=== PATIENT | male | born 1950 | race Caucasian/White ===

== ENCOUNTER → 2016-12-07 | Outpatient (CLI) | payer MEDICARE, OTHER ==
--- NOTE | 2016-12-07 12:22 | RADIOLOGY REPORT (SQ) ---
EXAM DESCRIPTION: MRI HEAD COMBO COMPLETED DATE/TIME: 12/07/2016 11:39 am REASON FOR STUDY: DIZZINESS/HEADACHE R51 HEADACHE R42 DIZZINESS AND GIDDINESS COMPARISON: None. TECHNIQUE: Multiplanar imaging includes noncontrasted T1, T2, FLAIR, diffusion with ADC map and post gadolinium contrast T1 sequences. Images stored on PACS. CONTRAST TYPE AND DOSE: 10 mL Multihance. RENAL FUNCTION: GFR > 60. LIMITATIONS: None. FINDINGS: ANATOMY: No congenital brain anomalies. Normal vascular flow voids. Pituitary fossa normal . CSF SPACES: Normal in size and contour. No hemorrhage. CEREBRUM: Sulci and gyri normal in size and contour. Normal white matter signal on FLAIR imaging. No evidence of hemorrhage, mass, or extraaxial fluid collection. No abnormal enhancement post contrast. POSTERIOR FOSSA: No signal alteration. No hemorrhage. No edema, masses, or mass effect. Internal ignacia tory canals, cerebellopontine angles, mastoids normal. No enhancing lesions. No abnormal enhancement post contrast. DIFFUSION IMAGING: Negative for acute or subacute infarction. ORBITS: No masses. Right globe post cataract surgery. Left globe unremarkable PARANASAL SINUSES: Opacified left maxillary sinus with fluid, sinusitis versus mucus or serous retent ion cyst OTHER: No other significant finding. IMPRESSION: LEFT MAXILLARY SINUS IS OPACIFIED WITH FLUID, SINUSITIS VERSUS MUCUS OR SEROUS RETENTION CYST. OTHERWISE, UNREMARKABLE MRI OF THE BRAIN WITHOUT AND WITH INTRAVENOUS GADOLINIUM CONTRAST. EVIDENCE OF ACUTE STROKE: NO. TECHNICAL DOCUMENTATION: JOB ID: [id number] [employer]- All Rights Reserved
--- NOTE | 2016-12-07 12:36 | RADIOLOGY REPORT (SQ) ---
EXAM DESCRIPTION: CAROTID DOPPLER COMPLETED DATE/TIME: 12/07/2016 12:27 pm REASON FOR STUDY: DIZZINESS R51 HEADACHE R42 DIZZINESS AND GIDDINESS COMPARISON: MRI brain 12/07/2016 TECHNIQUE: Grayscale ultrasound, Doppler velocity and spectra, and color Doppler images acquired of the extra-cranial carotid and vertebral arteries. Images stored on PACS. LIMITATIONS: None. FINDINGS: RIGHT CAROTID CCA Velocities: Within normal limits. ICA Velocities Peak systolic 0.87 m/s. End diastolic 0.11 m/s. Proximal ICA/CCA peak systolic ratio 0.8. Spectra normal. No significant plaque. LEFT CAROTID CCA Velocities: Within normal limits. ICA Velocities Peak systolic 0.94 m/s. End diastolic 0.19 m/s. Proximal ICA/CCA peak systolic ratio 0.8. Spectra normal. No significant plaque. VERTEBRAL ARTERIES: Antegrade flow. Normal waveforms. SUBCLAVIAN ARTERIES: Not examined OTHER: No other significant finding. IMPRESSION: NO HEMODYNAMICALLY SIGNIFICANT STENOSIS. COMMENT: Quality ID #195: Velocity criteria are extrapolated from the diameter data as defined by t he Society of Radiologists in Ultrasound Consensus Conference. Radiology 2003: 229; 340-346. TECHNICAL DOCUMENTATION: JOB ID: [id number] [employer]- All Rights Reserved
== END ==
LOC: RAD 10:45
PROVIDERS: ATTEND Physician Assistant
DX: R51 Headache (principal); R42 Dizziness and giddiness
CPT/HCPCS: 82565; 93880; 70553; A9577

== ENCOUNTER 2019-08-31 11:27 | Emergency (ER) | payer MEDICARE, OTHER ==
--- NOTE | 2019-08-31 12:10 | ER Document Report ---
ED Medical Screen (RME) - General Chief Complaint: General Weakness Stated Complaint: WEAKNESS Time Seen by Provider: 08/31/19 12:02 Mode of Arrival: Ambulatory Information source: Patient Notes: 69-year-old male presented to ED for complaint of lightheadedness which has increased over the last 2 days. He states he did have a carotid scan echo and is seen his card folder last week. He does have a radiation monitor on the supposed to mail and when the week is over. He states he has been feeling clammy weeks hand tingling and lightheaded which is increased over the last 2 days. He states he cannot get a hold to his card folder because he is on vacation at this time. He does have a history of high blood pressure cholesterol diabetes type 2 inguinal hernia to the left repaired a colon resection with 12 inches of colon removed for colon polyp and a colonoscopy. He does not smoke but he is a former smoker does not drink or use any illicit drugs. Lives with his and he is retired. Lungs are clear to auscultation respirations are regular nonlabored at this time. I have greeted and performed a rapid initial assessment of this patient. A comprehensive ED assessment and evaluation of the patient, analysis of test results and completion of medical decision making process will be conducted by an additional ED providers. TRAVEL OUTSIDE OF THE [place] IN LAST 30 DAYS: No - Related Data Allergies/Adverse Reactions: No Known Allergies Allergy (Unverified 09/08/15 13:04) Past Medical History - Past Medical History Cardiac Medical History: Reports: Hx Hypertension Denies: Hx Heart Attack Pulmonary Medical History: Denies: Hx Asthma Neurological Medical History: Denies: Hx Cerebrovascular Accident, Hx Seizures GI Medical History: Denies: Hx Hepatitis, Hx Hiatal Hernia, Hx Ulcer Infectious Medical History: Denies: Hx Hepatitis Past Surgical History: Denies: Hx Open Heart Surgery, Hx Pacemaker Physical Exam - Vital signs Vitals: Temp Pulse Resp BP Pulse Ox 98.9 F 98 20 137/53 H 99 08/31/19 11:31 08/31/19 11:31 08/31/19 11:08/31/19 11:08/31/19 11:31 Course - Vital Signs Vital signs: Temp Pulse Resp BP Pulse Ox 98.9 F 98 20 137/53 H 99 08/31/19 11:08/31/19 11:31 08/31/19 11:31 08/31/19 11:31 08/31/19 11:31
[2019-08-31 12:38] LABS: ABSOLUTE EOSINOPHILS # (AUTO) 0.2 10^3/uL (0.0-0.6); ABSOLUTE LYMPHOCYTES (AUTO) 1.1 10^3/uL (0.5-4.7); ABSOLUTE MONOCYTES (AUTO) 0.6 10^3/uL (0.1-1.4); ABSOLUTE NEUT (AUTO) 7.1 10^3/uL (1.7-8.2); BASOPHILS % (AUTO) 0.5 % (0-2); EOSINOPHILS % (AUTO) 2.6 % (0-6); HEMATOCRIT 45.3 % (37.9-51.0); LYMPHOCYTES % (AUTO) 11.9 % (13-45); MEAN CORPUSCULAR HEMOGLOBIN 29.9 pg (27.0-33.4); MEAN CORPUSCULAR HGB CONC 35.3 g/dL (32.0-36.0); MEAN CORPUSCULAR VOLUME 85 fl (80-97); MONOCYTES % (AUTO) 6.5 % (3-13); PLATELET COUNT 243 10^3/uL (150-450); RED BLOOD COUNT 5.34 10^6/uL (4.35-5.55); RED CELL DISTRIBUTION WIDTH 16.4 % (11.5-14.0); SEGMENTED NEUTROPHILS % (AUTO) 78.5 % (42-78); TOTAL CELLS COUNTED % (AUTO) 100 %
[2019-08-31 12:57] LABS: APPEARANCE,URINE SLIGHTLY-CLOUDY; BILIRUBIN,URINE NEGATIVE (NEGATIVE); GLUCOSE, URINE >=500 mg/dL (NEGATIVE); KETONES,URINE TRACE mg/dL (NEGATIVE); LEUKOCYTE ESTERASE,URINE TRACE (NEGATIVE); NITRITE,URINE NEGATIVE (NEGATIVE); PROTEIN,URINE NEGATIVE (NEGATIVE); URINE SPECIFIC GRAVITY 1.021
[2019-08-31 12:58] LABS: ALBUMIN 4.6 g/dL (3.5-5.0); ALKALINE PHOSPHATASE 70 U/L (38-126); ANION GAP 9 (5-19); ASPARTATE AMINO TRANSFERASE 30 U/L (17-59); BILIRUBIN,TOTAL 0.7 mg/dL (0.2-1.3); BLOOD UREA NITROGEN 20 mg/dL (7-20); CALCIUM 10.7 mg/dL (8.4-10.2); CARBON DIOXIDE 27 mmol/L (22-30); CHLORIDE 99 mmol/L (98-107); COLOR,URINE YELLOW; CREATINE KINASE 68 U/L (55-170); GLUCOSE 277 mg/dL (75-110); POTASSIUM 4.8 mmol/L (3.6-5.0); TOTAL PROTEIN 7.5 g/dL (6.3-8.2)
--- NOTE | 2019-08-31 12:59 | RADIOLOGY REPORT (SQ) ---
EXAM DESCRIPTION: CHEST 2 VIEWS IMAGES COMPLETED DATE/TIME: 08/31/2019 12:45 pm REASON FOR STUDY: Clammy lightheaded tingling fingers weakness COMPARISON: None. EXAM PARAMETERS: NUMBER OF VIEWS: two views TECHNIQUE: Digital Frontal and Lateral radiographic views of the chest acquired. RADIATION DOSE: NA LIMITATIONS: none FINDINGS: LUNGS AND PLEURA: Possible 8 mm nodule in the right base. This could represent nipple sha rajendra. MEDIASTINUM AND HILAR STRUCTURES: No masses or contour abnormalities. HEART AND VASCULAR STRUCTURES: Heart normal size. No evidence for failure. BONES: No acute findings. HARDWARE: Electronic device on the left side of the chest. OTHER: No other significant finding. IMPRESSION: Cannot exclude a right pulmonary nodule. Consider repeat PA chest film with nipple ángel ers. TECHNICAL DOCUMENTATION: JOB ID: [id number] 2010 [employer]- All Rights Reserved Reading location - IP/workstation name: [email or web address]
--- NOTE | 2019-08-31 13:11 | EKG REPORT ---
SEVERITY:- ABNORMAL ECG - SINUS RHYTHM LEFT ANTERIOR FASCICULAR BLOCK CONSIDER ANTEROSEPTAL INFARCT : Confirmed by: David Payton MD 31-Aug-2019 13:10:10
--- NOTE | 2019-08-31 15:42 | RADIOLOGY REPORT (SQ) ---
EXAM DESCRIPTION: CHEST SINGLE VIEW IMAGES COMPLETED DATE/TIME: 08/31/2019 3:19 pm REASON FOR STUDY: eval possible pulmonary nodule COMPARISON: 08/31/2019 EXAM PARAMETERS: NUMBER OF VIEWS: One view. TECHNIQUE: Single frontal radiographic view of the chest acquired. Nipple markers in place. RADIATION DOSE: NA LIMITATIONS: None. FINDINGS: LUNGS AND PLEURA: No opacities, masses or pneumothorax. No pleural effusion. MEDIASTINUM AND HILAR STRUCTURES: No masses. Contour normal. HEART AND VASCULAR STRUCTURES: Heart normal in size. Normal vasculature. BONES: No acute findings. HARDWARE: Loop recorder overlies left chest. OTHER: No other significant finding. IMPRESSION: No evidence of acute cardiopulmonary process. No discrete pulmonary nodule identified. TECHNICAL DOCUMENTATION: JOB ID: [id number] 2010 [employer]- All Rights Reserved Reading location - IP/workstation name: [email or web address]
--- NOTE | 2019-08-31 17:05 | ER Document Report ---
ED Dizziness/Weakness - General Chief Complaint: General Weakness Stated Complaint: WEAKNESS Time Seen by Provider: 08/31/19 12:02 Primary Care Provider: GEORGIANA GIL MD [Primary Care Provider] - Follow up as needed Mode of Arrival: Ambulatory Information source: Patient Notes: This is a 69-year-old male patient presenting to the emergency department with c oncerns for lightheadedness, clammy, and bilateral extremity upper and lower tingling and generalized weakness. He reports her symptoms started this morning at 7 AM. He denies any chest pain or shortness of breath. He does have a history of hypertension, hyperlipidemia and diabetes. He is a former smoker that quit 30 years ago[address] He sees Dr. Andrade in [place], he had an echocardiogram done on and he currently has a Holter monitor in place. He states the reason for the Holter monitor and recent echo is due to the symptoms that he is presenting with today. TRAVEL OUTSIDE OF THE [place] IN LAST 30 DAYS: No - Related Data Allergies/Adverse Reactions: No Known Allergies Allergy (Unverified 09/08/15 13:04) Past Medical History - General Information source: Patient - Social History Smoking Status: Former Smoker Family History: Reviewed & Not Pertinent Patient has homicidal ideation: No - Past Medical History Cardiac Medical History: Reports: Hx Hypertension Denies: Hx Heart Attack Pulmonary Medical History: Denies: Hx Asthma Neurological Medical History: Denies: Hx Cerebrovascular Accident, Hx Seizures GI Medical History: Denies: Hx Hepatitis, Hx Hiatal Hernia, Hx Ulcer Infectious Medical History: Denies: Hx Hepatitis Past Surgical History: Denies: Hx Open Heart Surgery, Hx Pacemaker Review of Systems - Review of Systems Constitutional: Malaise, Weakness - Generalized EENT: No symptoms reported Cardiovascular: denies: Chest pain, Palpitations, Heart racing Respiratory: No symptoms reported Physical Exam - Vital signs Vitals: Temp Pulse Resp BP Pulse Ox 98.9 F 98 20 137/53 H 99 08/31/19 11:31 08/31/19 11:31 08/31/19 11:31 08/31/19 11:08/31/19 11:31 - Notes Notes: PHYSICAL EXAMINATION: GENERAL: Well-appearing, well-nourished and in no acute distress. HEAD: Atraumatic, normocephalic. EYES: Pupils equal round and reactive to light, extraocular movements intact, sclera anicteric, conjunctiva are normal. ENT: Nares patent, oropharynx clear without exudates. Moist mucous membranes. NECK: Normal range of motion, supple without lymphadenopathy LUNGS: Breath sounds clear to auscultation bilaterally and equal. No wheezes rales or rhonchi. HEART: Regular rate and rhythm without murmurs ABDOMEN: Soft, nontender, nondistended abdomen. No guarding, no rebound. No masses appreciated. Musculoskeletal: Normal range of motion, no pitting or edema. No cyanosis. NEUROLOGICAL: Cranial nerves grossly intact. Normal speech, normal gait. Normal sensory, motor exams PSYCH: Normal mood, normal affect. SKIN: Warm, Dry, normal turgor, no rashes or lesions noted. Course - Re-evaluation Re-evalutation: Patient appears well, nontoxic his vital signs have been within normal limits. EKG was reviewed by me shows a sinus rhythm, rate of 91, QTc 424, normal axis, no ST segment elevations or depressions to suggest ischemia. There is no previous EKG on file to compare to. His work-up today has been reassuring. He has had 2- troponins and a normal chest x-ray. Other laboratory investigations were reassuring. I did discuss this patient with attending physician, Dr. Guzman. 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 He was given strict ED return precautions and he was invited to return to the emergency department at anytime for reevaluation. Patient and his are in agreement with this plan, patient reports he feels much better now. - Vital Signs Vital signs: Temp Pulse Resp BP Pulse Ox 98.7 F 83 18 129/76 H 98 08/31/19 17:37 08/31/19 17:37 08/31/19 17:37 08/31/19 17:37 08/31/19 17:37 - Laboratory Result Diagrams: 08/31/19 12:15 08/31/19 12:15 Laboratory results interpreted by me: 08/31/19 08/31/19 08/31/19 12:15 12:15 12:15 RDW 16.4 H Lymph % (Auto) 11.9 L Seg Neutrophils % 78.5 H Sodium 134.5 L Glucose 277 H Calcium 10.7 H Urine Glucose (UA) >=500 H Urine Ketones TRACE H Urine Urobilinogen 2.0 H Ur Leukocyte Esterase TRACE H Urine Ascorbic Acid 40 H Discharge - Discharge Clinical Impression: Generalized weakness Condition: Stable Disposition: HOME, SELF-CARE Additional Instructions: As discussed please follow-up with your field crop harvest worker, call them tomorrow morning to schedule an appointment. Let them know that we did a cardiac work-up today and you had 2 negative troponins. Please return to the emergency department with any new or worsening symptoms, we are always happy to reevaluate you. Referrals: GEORGIANA GIL MD [Primary Care Provider] - Follow up as needed
[2019-08-31 17:38] VITALS: BP 129/76
== END 2019-08-31 17:36 | disposition home or self-care (01) ==
LOC: ER 11:27
DX: R53.1 Weakness (principal); I10 Essential (primary) hypertension
CPT/HCPCS: 36415; 71045; 71046; 80053; 81001; 82550; 83735; 84443; 84484; 85025; 93005; 93010; 99285

== ENCOUNTER 2019-10-14 13:06 | Day surgery (SDC) | payer MEDICARE ==
[~2019-10-14 13:06] MED LIST: CEFAZOLIN 1 GM/D5W RTU 1 GM/50 ML RTUPB IV ONE; CEFAZOLIN 1 GM/D5W RTU 1 GM/50 ML RTUPB IV PRN; CEFAZOLIN INJ 1 GM VIAL IV PRN; DEXTROSE 5%-LACTATED RINGERS 1,000 ML IV PRN
[2019-10-14 13:47] LABS: ABSOLUTE EOSINOPHILS # (AUTO) 0.3 10^3/uL (0.0-0.6); ABSOLUTE MONOCYTES (AUTO) 0.6 10^3/uL (0.1-1.4); ABSOLUTE NEUT (AUTO) 4.8 10^3/uL (1.7-8.2); BASOPHILS % (AUTO) 0.6 % (0-2); EOSINOPHILS % (AUTO) 3.9 % (0-6); HEMATOCRIT 45.4 % (37.9-51.0); HEMOGLOBIN 15.4 g/dL (13.5-17.0); LYMPHOCYTES % (AUTO) 14.8 % (13-45); MEAN CORPUSCULAR HEMOGLOBIN 28.8 pg (27.0-33.4); MEAN CORPUSCULAR HGB CONC 33.9 g/dL (32.0-36.0); MEAN CORPUSCULAR VOLUME 85 fl (80-97); MONOCYTES % (AUTO) 8.9 % (3-13); PLATELET COUNT 226 10^3/uL (150-450); RED BLOOD COUNT 5.34 10^6/uL (4.35-5.55); SEGMENTED NEUTROPHILS % (AUTO) 71.8 % (42-78); TOTAL CELLS COUNTED % (AUTO) 100 %; WHITE BLOOD COUNT 6.7 10^3/uL (4.0-10.5)
[2019-10-14 14:14] LABS: ANION GAP 12 (5-19); BLOOD UREA NITROGEN 17 mg/dL (7-20); CARBON DIOXIDE 24 mmol/L (22-30); CHLORIDE 102 mmol/L (98-107); GLUCOSE 120 mg/dL (75-110); POTASSIUM 4.4 mmol/L (3.6-5.0)
[2019-10-14] MEDS ORDERED: FENTANYL CITRATE INJ/PF 100 MCG/2 ML AMPUL ONE (15:17)
[2019-10-14] MEDS ORDERED: LIDOCAINE 2% INJ-PF (20 MG/ML) 10 ML AMPUL ONE (15:17)
[2019-10-14] MEDS ORDERED: ONDANSETRON HCL INJ/PF 4 MG/2 ML SDV ONE (15:18)
[2019-10-14] MEDS ORDERED: PROPOFOL INJ 200 MG/20 ML VIAL IV ONE (15:18)
[2019-10-14] MEDS ORDERED: MIDAZOLAM 2 MG/2 ML INJ ONE (15:18)
[2019-10-14] MEDS ORDERED: LIDOCAINE 0.5% INJ-PF (5 MG/ML) 50 ML SDV ONE (16:07)
[2019-10-14] MEDS ORDERED: BUPIVACAINE HCL 0.25 % INJ/PF (2.5 MG/1 ML) 30 ML VIAL ONE (16:07)
--- NOTE | 2019-10-14 16:55 | Discharge Summary ---
Discharge Summary (SDC) - Discharge Final Diagnosis: Infected left flank sebaceous cyst Date of Surgery: 10/14/19 Discharge Date: 10/14/19 Condition: Good Treatment or Instructions: Replace dressings as needed; follow-up with Dr. Palma in 1 week for possible drain removal; may shower; patient taking home medications including p.o. antibiotics, Tylenol and Motrin Referrals: EFRAIN PALMA MD [ACTIVE STAFF] - 10/29/19 1:15 pm Discharge Diet: As Tolerated Respiratory Treatments at Home: Deep Breathing/Coughing Discharge Activity: Activity As Tolerated Home Care Assistance: None Needed Report the Following to Your Physician Immediately: Shortness of Breath, Fever over 101 Degrees, Unusual Bleeding, Redness, Drainage-Yellow, Drainage-Hardin, Drainage-Green, Drainage-Foul Smelling, IV Site Infection Signs
--- NOTE | 2019-10-14 17:00 | Operative Report ---
Operative Report DATE OF SURGERY: 10/14/19 PREOPERATIVE DIAGNOSIS: Infected left sebaceous flank abscess POSTOPERATIVE DIAGNOSIS: Same OPERATION: Complete excision of infected left flank sebaceous cyst and closure over drain SURGEON: EFRAIN MILLER ANESTHESIA: LMAC TISSUE REMOVED OR ALTERED: Infected left sebaceous cyst with abscess COMPLICATIONS: None ESTIMATED BLOOD LOSS: 10 cc INTRAOPERATIVE FINDINGS: See below PROCEDURE: Patient was taken the preop holding area to the main operating where LMAC anesthesia was induced. Was placed in the slight right lateral decubitus position, left flank prepped with Betadine. Surgical plan surgical timeout were conducted. The findings were significant for a moderate to large sized infected horizontally oriented sebaceous cyst with overlying necrotic skin, erythema and moderate cellulitis. The acute abscess was approximately 3 x 6 cm. I a nesthetized the skin surrounding the abscess with 1/4% Marcaine mixed with 0.5% lidocaine. An elliptical excisional contact was made oriented horizontally to encompass the acute abscess. All acutely inflamed skin, subcutaneous tissue necrotic abscess was all excised in its entirety. The level of the dissection was taken down to the fascia the abdominal wall. The wound was irrigated with saline, and bleeders cauterized as encountered. This was felt to be a near complete excision with only a minimal amount of inflammatory changes to the superior skin edge. I closed the wound primarily for 80% of its length with 5 interrupted Ethilon sutures in a vertical mattress fashion. Laterally I brought out through the operative incision a 2 Rogers drains, 1/2 inch each, 1 secured with an additi onal 3-0 Ethilon suture. 4 x 4's applied. Patient taught procedure well, taken recovery in stable condition.
[2019-10-14 19:39] VITALS: BP 132/62
== END 2019-10-14 18:40 | disposition home or self-care (01) ==
LOC: OROUT 13:06
PROVIDERS: ATTEND Surgery
DX: L02.211 Cutaneous abscess of abdominal wall (principal); Z79.01 Long term (current) use of anticoagulants
CPT/HCPCS: 36415; 87070; 87205; 85025; 87075; 87077; 80048; 88304 ×2; 00820; 22901; J0690; J3010; J3490 ×2; J2405; J2704; 820; J2250